=== PATIENT | male | born 1975 | race Caucasian/White ===

== ENCOUNTER 2023-06-15 11:59 | Emergency (ER) | payer SELFPAY ==
[2023-06-15 12:30] VITALS: RESP 20; BMI 40.3
[2023-06-15] MEDS ORDERED: ACETAMINOPHEN 1000 MG/100 ML BAG IVPB ONE (12:32)
[2023-06-15] MEDS ORDERED: SODIUM CHLORIDE 0.9% 500 ML INFUS.BAG IV ONE (12:35)
[2023-06-15] MEDS ORDERED: ACETAMINOPHEN INJECTION 100 ML IVPB ONE (12:57)
[2023-06-15 13:11] LABS: BASO % 0.6 % (0-2.0); EOS % 5.7 % (0-4.5); HEMATOCRIT 35.2 % (35.4-49); HEMOGLOBIN 11.4 GM/dL (11.7-16.9); MCH 25.9 pg (25.7-33.7); MCHC 32.4 g/dl (32.0-35.9); MEAN PLT VOLUME 8.4 fl (7.5-11.1); MONO % 11.2 % (3.8-10.2); NEUT % 34.5 % (42.8-82.8); PLATELET COUNT 50 10^3/uL (134-434); RDW 18.6 % (11.9-15.9); WHITE BLOOD COUNT 4.3 K/mm3 (4.0-10.0)
[2023-06-15 13:17] LABS: INR 1.35 (0.83-1.09); PROTHROMBIN TIME (PATIENT) 15.6 SEC (9.7-13.0)
[2023-06-15 13:20] LABS: ACTIVATED PTT 37.6 SECONDS (25.2-36.5)
[2023-06-15 13:31] LABS: POTASSIUM 3.4 mmol/L (3.5-5.1)
[2023-06-15 13:33] LABS: ALBUMIN 2.8 g/dl (3.4-5.0); CALCIUM 7.8 mg/dL (8.5-10.1)
[2023-06-15 13:34] LABS: BLOOD UREA NITROGEN 6.9 mg/dL (7-18)
[2023-06-15 13:36] LABS: CREATININE 0.5 mg/dL (0.55-1.3)
[2023-06-15 13:38] LABS: BILIRUBIN,TOTAL 1.3 mg/dL (0.2-1); TOT PROT 7.5 g/dl (6.4-8.2)
[2023-06-15 14:24] LABS: MAGNESIUM 1.5 mg/dL (1.8-2.4)
[2023-06-15] MEDS ORDERED: MAGNESIUM SULF 50% (8.12 MEQ/2 ML-1 GM VIAL) IVPB ONE (14:28)
[2023-06-15] MEDS ORDERED: POTASSIUM CHLORIDE ORAL LIQUID 20 MEQ/15 ML PO ONE (14:28)
[2023-06-15] MEDS ORDERED: POTASSIUM CHLORIDE TABS 20 MEQ TABLET.ER (FP) PO ONE (15:20)
[2023-06-15] MEDS ORDERED: MAGNESIUM SULFATE IN WATER 2 GM/50 ML IVPB IVPB ONE (15:20)
[2023-06-15 16:39] LABS: URINE APPEARANCE CLOUDY; URINE BILIRUBIN NEGATIVE (NEGATIVE); URINE COLOR DK YELLOW; URINE GLUCOSE (UA) NEGATIVE (NEGATIVE); URINE KETONE TRACE (NEGATIVE); URINE LEUK ESTERASE NEGATIVE (NEGATIVE); URINE NITRITE NEGATIVE (NEGATIVE); URINE PROTEIN NEGATIVE (NEGATIVE)
[2023-06-15 16:49] LABS: COCAINE, UR NEGATIVE (NEGATIVE); METHADONE, UR NEGATIVE (NEGATIVE); PHENCYCLIDINE,URINE NEGATIVE (NEGATIVE); URINE AMPHETAMINES NEGATIVE (NEGATIVE); URINE BENZODIAZEPINES NEGATIVE (NEGATIVE)
[2023-06-15 16:50] LABS: OPIATES, URI NEGATIVE (NEGATIVE); URINE BARBITURATES NEGATIVE (NEGATIVE)
[2023-06-15 17:32] VITALS: BP 99/54; PULSE 95; TEMP 97.8
== END 2023-06-15 18:30 | disposition home or self-care (01) ==
LOC: JER 11:59
PROC: 3E033GC Introduction of Other Therapeutic Substance into Peripheral Vein, Percutaneous Approach (ICD-10-PCS; principal; 2023-06-15)
DX: R07.9 Chest pain, unspecified (principal); F10.129 Alcohol abuse with intoxication, unspecified; R20.0 Anesthesia of skin; Y90.8 Blood alcohol level of 240 mg/100 ml or more
CPT/HCPCS: 36415; 71046-TC-FY; 80053; 80307; 81003; 83690; 83735; 84484; 85025; 85610; 85730; 87086; 93005; 93010; 99285-25